=== PATIENT | male | born 1940 | race Caucasian/White ===

== ENCOUNTER 2017-12-02 17:13 | Emergency (ER) | payer MEDICARE, BC ==
[2017-12-02 17:43] LABS: CHLORIDE,CL 97 mEq/L (98-106); SODIUM,NA 135 mEq/L (136-145)
--- NOTE | 2017-12-02 17:48 | EDM.PDOC ---
ED HPI GENERAL MEDICAL PROBLEM - General Chief Complaint: Chest Pain Stated Complaint: ?CP Time Seen by Provider: 12/02/17 17:32 Source of Information: Reports: Patient History Limitations: Reports: No Limitations - History of Present Illness INITIAL COMMENTS - FREE TEXT/NARRATIVE: States that he developed heartburn in the midepigastric area and down both arms. This started after drinking coffee. He took his omeprazole, TUMS, and Pepcid. He states that the pain has resolved but he is concerned that it may be his heart or heartburn and presented to be evaluated. He did not get diaphoretic or nauseated or SOB with it. Has been feeling well previous to this. Onset: Today Location: Reports: Chest, Abdomen Improves with: Reports: Other (tums, pepcid ) Associated Symptoms: Denies: Diaphoresis, Fever/Chills, Nausea/Vomiting, Shortness of Breath Treatments [employer]: Reports: Aspirin Bilateral Lower Chest Pain Score (Numeric/FACES): 7 - Related Data Allergies Allergy/AdvReac Type Severity Reaction Status Date / Time No Known Allergies Allergy Verified 12/02/17 17:27 Home Meds: Home Meds Aspirin 325 mg PO DAILY PRN 12/02/17 [History] Citalopram Hydrobromide [Celexa] 20 mg PO BEDTIME 12/02/17 [History] Cyanocobalamin (Vitamin B12) [Vitamin B12] 500 mcg PO DAILY 12/02/17 [History] Ergocalciferol (Vitamin D2) [Vitamin D2] 2,000 unit PO DAILY 12/02/17 [History] Famotidine [Pepcid AC] 20 mg PO DAILY PRN 12/02/17 [History] Lycopene 10 mg PO DAILY 12/02/17 [History] Metoprolol Tartrate 25 mg PO BID 12/02/17 [History] Multivitamin [Multivitamins] 1 cap PO DAILY 12/02/17 [History] Omeprazole 20 mg PO DAILY PRN 12/02/17 [History] Saw [place] 160 mg PO DAILY 12/02/17 [History] Terazosin HCl [Terazosin] 5 mg PO DAILY 12/02/17 [History] amLODIPine Besylate [Amlodipine Besylate] 5 mg PO DAILY 12/02/17 [History] traZODone HCl [Trazodone HCl] 50 mg PO BEDTIME 12/02/17 [History] Past Medical History - Past Health History Medical/Surgical History: Denies Medical/Surgical History Cardiovascular History: Reports: Hypertension Genitourinary History: Reports: BPH Psychiatric History: Reports: Anxiety Social & Family History - Tobacco Use Smoking Status *Q: Former Smoker Used Tobacco, but Quit: Yes Month/Year Tobacco Last Used: 33yrs - Caffeine Use Caffeine Use: Reports: None - Recreational Drug Use Recreational Drug Use: No - Living Situation & Occupation Living situation: Reports: , with Spouse Occupation: Retired (spouse has severe dementia and requires constant supervision.) ED ROS GENERAL - Review of Systems Review Of Systems: See Below Constitutional: Reports: No Symptoms HEENT: Reports: No Symptoms Respiratory: Denies: Shortness of Breath Cardiovascular: Reports: Chest Pain, Blood Pressure Problem GI/Abdominal: Reports: Abdominal Pain, Other (heartburn). Denies: Nausea, Vomiting : Reports: No Symptoms Musculoskeletal: Reports: No Symptoms Skin: Reports: No Symptoms Psychiatric: Reports: Anxiety ED EXAM, GENERAL - Physical Exam Exam: See Below Exam Limited By: No Limitations General Appearance: Alert, WD/WN, Anxious Ears: Normal External Exam, Normal Canal, Normal TMs Nose: Normal Inspection Throat/Mouth: Normal Inspection, Normal Oropharynx, Normal Voice, No Airway Compromise Head: Atraumatic, Normocephalic Neck: Normal Inspection, Supple, Non-Tender Respiratory/Chest: No Respiratory Distress, Lungs Clear, Normal Breath Sounds Cardiovascular: Normal Peripheral Pulses, Regular Rate, Rhythm, No Edema GI/Abdominal: Normal Bowel Sounds, Soft, Tender (midepigastric area) Extremities: Normal Inspection, No Pedal Edema, Normal Capillary Refill Neurological: Alert, Oriented Psychiatric: Normal Affect Skin Exam: Warm, Dry Course - Vital Signs Last Recorded V/S: Last Vital Signs Temp 97.2 F 12/02/17 17:18 Pulse 72 12/02/17 17:18 Resp 20 12/02/17 17:18 BP 188/85 H 12/02/17 17:18 Pulse Ox 96 12/02/17 17:18 - Orders/Labs/Meds Orders: Active Orders 24 hr Category Date Time Status CXR [Chest 2V] [CR] Stat Exams 12/02/17 17:24 Ordered BASIC METABOLIC PANEL,BMP [CHEM] Stat Lab 12/02/17 17:25 Ordered CREATINE KINASE,CK [CHEM] Stat Lab 12/02/17 17:25 Ordered LACTATE DEHYDROGENASE,LDH [CHEM] Stat Lab 12/02/17 17:25 Ordered TROPONIN I [CHEM] Stat Lab 12/02/17 17:25 Ordered Labs: Laboratory Tests 12/02/17 12/02/17 Range/Units 17:21 17:21 WBC 8.9 (5.0-10.0) 10^3/uL RBC 4.31 L (4.50-6.00) 10^6/uL Hgb 13.6 L (14.0-18.0) g/dL Hct 39.4 L (40.0-54.0) % MCV 91.4 (82.0-94.0) fL MCH 31.6 (27.0-32.0) pg MCHC 34.5 (33.0-38.0) g/dL RDW Coeff of [place] 12.4 (11.0-15.0) % Plt Count 217 (150-400) 10^3/uL Neut % (Auto) 64.9 (35-85) % Lymph % (Auto) 24.3 (10-55) % [place] % (Auto) 8.8 (0-16) % Eos % (Auto) 1.9 (0-5) % Baso % (Auto) 0.1 (0-3) % Neut # (Auto) 5.78 (1.80-7.00) 10^3/uL Lymph # (Auto) 2.16 (1.00-4.80) 10^3/uL [place] # (Auto) 0.78 (0.00-0.80) 10^3/uL Eos # (Auto) 0.17 (0.00-0.45) 10^3/uL Baso # (Auto) 0.01 10^3/uL PT 10.0 (9.7-12.3) SEC INR 0.96 (0.92-1.18) - Re-Assessments/Exams Free Text/Narrative Re-Assessment/Exam: 12/02/17 17:55 In to discuss lab and EKG results with the pt. Departure - Departure Time of Disposition: 18:00 Disposition: Home, Self-Care 01 Condition: Good Clinical Impression: Gastroesophageal reflux disease Qualifiers: Esophagitis presence: esophagitis presence not specified Qualified Code(s): K21.9 - Gastro-esophageal reflux disease without esophagitis Instructions: Gastroesophageal Reflux Disease, Adult, [id number] Additional Instructions: continue same meds as before Follow up with [facility] in the ER next week for follow up. Will need to call the clinic to make this appt. [phone] If pain reoccurs or if you do not feel well return to the ER. - Problem List & Annotations (1) Gastroesophageal reflux disease SNOMED Code(s): 008736903 Code(s): K21.9 - GASTRO-ESOPHAGEAL REFLUX DISEASE WITHOUT ESOPHAGITIS Status: Acute Priority: High Qualifiers: Esophagitis presence: esophagitis presence not specified Qualified Code(s) : K21.9 - Gastro-esophageal reflux disease without esophagitis - Problem List Review Problem List Initiated/Reviewed/Updated: Yes - My Orders Last 24 Hours: My Active Orders 12/02/17 17:24 CXR [Chest 2V] [CR] Stat 12/02/17 17:25 BASIC METABOLIC PANEL,BMP [CHEM] Stat CREATINE KINASE,CK [CHEM] Stat LACTATE DEHYDROGENASE,LDH [CHEM] Stat TROPONIN I [CHEM] Stat - Assessment/Plan Last 24 Hours: My Active Orders 12/02/17 17:24 CXR [Chest 2V] [CR] Stat 12/02/17 17:25 BASIC METABOLIC PANEL,BMP [CHEM] Stat CREATINE KINASE,CK [CHEM] Stat LACTATE DEHYDROGENASE,LDH [CHEM] Stat TROPONIN I [CHEM] Stat
== END 2017-12-02 18:10 | disposition home or self-care (01) ==
LOC: CC.ED 17:13
DX: K21.9 Gastro-esophageal reflux disease without esophagitis (principal); I10 Essential (primary) hypertension; Z79.82 Long term (current) use of aspirin; Z79.899 Other long term (current) drug therapy; Z87.891 Personal history of nicotine dependence
CPT/HCPCS: 36415; 71046; 80048; 82550; 83615; 84484; 85025; 85610; 93005; 99285